=== PATIENT | female | born 1940 | race Hispanic/Latino ===

== ENCOUNTER → 2018-09-17 | Outpatient (CLI) | payer OTHER ==
[~2018-09-17] MED LIST: AMLO5TAB9 PO; ASPI-1197 PO; FLUT16H NASAL; LACT1CAP72 PO; LEVO500T2 PO; LEVO50TA11 PO; MELA1TAB17 PO; METO-391 PO; OMEP20CA10 PO; PROP1DRO OU
== END | disposition home or self-care (01) ==
LOC: RAH 08:26
PROVIDERS: ATTEND Internal Medicine Gastroenterology
DX: K76.0 Fatty (change of) liver, not elsewhere classified (principal); Z90.49 Acquired absence of other specified parts of digestive tract
CPT/HCPCS: 76700

== ENCOUNTER → 2020-05-23 | Outpatient (CLI) | payer OTHER ==
[~2020-05-23] MED LIST changes: +AMLO-257 PO; -AMLO5TAB9 PO; -OMEP20CA10 PO; +OMEP20CA12 PO
== END | disposition home or self-care (01) ==
LOC: SHCH 13:35
PROVIDERS: ATTEND Internal Medicine Cardiovascular Disease
DX: I87.2 Venous insufficiency (chronic) (peripheral) (principal)
CPT/HCPCS: 93970

== ENCOUNTER → 2020-06-08 | Outpatient (CLI) | payer OTHER | END | disposition home or self-care (01) | LOC: RAH 13:21 | PROVIDERS: ATTEND Internal Medicine Cardiovascular Disease | DX: T82.110A Breakdown (mechanical) of cardiac electrode, initial encounter (principal); I70.0 Atherosclerosis of aorta | CPT/HCPCS: 71046 ==

== ENCOUNTER → 2020-07-24 | Outpatient (CLI) | payer OTHER | END | disposition home or self-care (01) | LOC: SHCH 14:37 | PROVIDERS: ATTEND Internal Medicine Cardiovascular Disease | DX: I87.2 Venous insufficiency (chronic) (peripheral) (principal); Z09 Encounter for follow-up examination after completed treatment for conditions other than malignant neoplasm | CPT/HCPCS: 93971 ==

== ENCOUNTER 2020-08-17 06:07 | Day surgery (SDC) | payer OTHER ==
[2020-08-15 10:22] LABS: BASOPHILS % (AUTO) 0.1 % (0.0-5.0); EOSINOPHILS % (AUTO) 1.9 % (0.0-8.0); HEMATOCRIT 38.2 % (36-48); LYMPHOCYTES % (AUTO) 33.3 % (21.0-51.0); MEAN CORPUSCULAR HGB CONC 32.7 g/dL (32.0-36.0); MEAN CORPUSCULAR VOLUME 91.6 fL (79-99); MONOCYTES % (AUTO) 6.7 % (3.0-13.0); NEUTROPHILS % (AUTO) 57.7 % (40.0-77.0); PLATELET COUNT (AUTO) 256 K/uL (130-400); RED BLOOD CELL COUNT(AUTO) 4.17 MIL/uL (4.00-5.50); RED CELL DISTRIBUTION WIDTH 13.5 % (11.0-15.5); WHITE BLOOD COUNT (AUTO) 7.3 K/uL (4.8-10.8)
[2020-08-15 10:31] LABS: CREATININE 0.7 mg/dL (0.5-1.5); POTASSIUM 4.6 mmol/L (3.5-5.1)
[2020-08-15 10:33] LABS: INR 0.99 (0.85-1.15); PROTHROMBIN TIME 10.8 SEC (9.6-11.6)
[2020-08-15 10:34] LABS: PARTIAL THROMBOPLASTIN TIME 24.8 SEC (26.3-35.5)
[2020-08-16 10:34] VITALS: BP 154/73
[2020-08-17] VITALS (10 sets, daily range): BP systolic 117–163; BP diastolic 53–66
[~2020-08-17] VITALS: Ht 149.9 cm; Wt 83.6 kg
[~2020-08-17 06:07] MED LIST changes: +CEFAZOLIN SODIUM 1 GM VIAL IVP SCH; -FLUT16H NASAL; -LACT1CAP72 PO; -LEVO500T2 PO; -MELA1TAB17 PO; +METF-444 PO; +MULT-1367 PO; -PROP1DRO OU; +TURMERIC PO; +biotin PO; +metamucil PO
[2020-08-17] MEDS ORDERED: 0.9%NACL 1000ML 1,000 ML IV ONE (06:45)
[2020-08-17] MEDS ORDERED: CEFAZOLIN SODIUM 1 GM VIAL ONE (07:04)
[2020-08-17] MEDS ORDERED: MEPERIDINE-PF 25 MG/ML SYG ONE ×3 (07:05→09:01)
[2020-08-17] MEDS ORDERED: MIDAZOLAM HCL 1 MG/ML 2ML VIAL ONE ×3 (07:05→09:01)
[2020-08-17] MEDS ORDERED: BUPIVACAINE/PF 0.25% 30ML VIAL IJ ONE (07:06)
[2020-08-17] MEDS ORDERED: LIDOCAINE HCL 1% MDV 50ML VIAL ONE (07:06)
[2020-08-17] MEDS ORDERED: IOHEXOL-350 50ML VIAL IV ONE (08:12)
[2020-08-17] MEDS ORDERED: TRAM50TA4 PO (10:14)
[2020-08-17] MEDS ORDERED: ACETAMINOPHEN WITH CODEINE 1 TAB TAB PO PRN ×2 (10:15→12:45)
[2020-11-20] MEDS ORDERED: LEVO50CA4 PO (13:02)
[2020-11-20] MEDS ORDERED: RAMI5CAP66 PO (13:02)
[2020-11-20] MEDS ORDERED: METF-444 PO (13:02)
[2020-11-20] MEDS ORDERED: METO-391 PO (13:02)
[2020-11-20] MEDS ORDERED: BIOT5000 PO (13:02)
[2020-11-20] MEDS ORDERED: OMEP-420 PO (13:02)
== END 2020-08-17 14:34 | disposition home or self-care (01) ==
LOC: DAH 06:07
PROVIDERS: ATTEND Internal Medicine Cardiovascular Disease
DX: T82.110A Breakdown (mechanical) of cardiac electrode, initial encounter (principal); I44.1 Atrioventricular block, second degree; I49.5 Sick sinus syndrome; I10 Essential (primary) hypertension; E78.5 Hyperlipidemia, unspecified; E11.9 Type 2 diabetes mellitus without complications; E03.9 Hypothyroidism, unspecified; I25.10 Atherosclerotic heart disease of native coronary artery without angina pectoris; Z79.01 Long term (current) use of anticoagulants; Z79.82 Long term (current) use of aspirin; Z79.890 Hormone replacement therapy; Z79.899 Other long term (current) drug therapy; Z98.890 Other specified postprocedural states; Z90.710 Acquired absence of both cervix and uterus; Y83.8 Other surgical procedures as the cause of abnormal reaction of the patient, or of later complication, without mention of misadventure at the time of the procedure
CPT/HCPCS: 33217; 36415; 71045; 80048; 82948 ×2; 85025; 85610; 85730; 93005; A4215; A4216; A4221; A4222; A4223 ×3; A4606; A4663; C1898 ×2; J0690; J2175 ×3; J2250 ×3; J3490 ×2; J7030; Q9967; 99156; 99157

== ENCOUNTER → 2020-09-18 | Outpatient (CLI) | payer OTHER ==
[~2020-09-18] MED LIST changes: -CEFAZOLIN SODIUM 1 GM VIAL IVP SCH; +TRAM50TA4 PO
== END | disposition home or self-care (01) ==
LOC: SHCH 08:50
PROVIDERS: ATTEND Internal Medicine Cardiovascular Disease
DX: I87.2 Venous insufficiency (chronic) (peripheral) (principal); Z09 Encounter for follow-up examination after completed treatment for conditions other than malignant neoplasm
CPT/HCPCS: 93971

== ENCOUNTER 2020-11-21 06:04 | Day surgery (SDC) | payer OTHER ==
[~2020-11-21] VITALS: Ht 149.9 cm; Wt 81.6 kg
[2020-11-21] VITALS (8 sets, daily range): BP systolic 98–126; BP diastolic 45–66
[~2020-11-21 06:04] MED LIST changes: -AMLO-257 PO; -ASPI-1197 PO; +BIOT5000 PO; +LEVO50CA4 PO; -LEVO50TA11 PO; -MULT-1367 PO; +OMEP-420 PO; -OMEP20CA12 PO; +RAMI5CAP66 PO; -TRAM50TA4 PO; -TURMERIC PO; -biotin PO; -metamucil PO
[2020-11-21] MEDS ORDERED: 0.9%NACL 1000ML 1,000 ML IV ONE (06:25)
[2020-11-21] MEDS ORDERED: LIDOCAINE HCL 1% 20 ML VIAL ONE (07:14)
[2020-11-21] MEDS ORDERED: PROPOFOL 10 MG/ML 20ML VIAL IV ONE (07:14)
[2020-11-21] MEDS ORDERED: 0.9%NACL 10ML VIAL ONE (07:47)
[2020-11-21] MEDS ORDERED: PHENYLEPHRINE HCL 10 MG/ML 1ML VIAL IV ONE (07:47)
== END 2020-11-21 08:30 | disposition home or self-care (01) ==
LOC: ENDO 06:04 → DAH 06:04 → ENDO 08:30
PROVIDERS: ATTEND Internal Medicine Gastroenterology
DX: R14.0 Abdominal distension (gaseous) (principal); Z20.822 Contact with and (suspected) exposure to COVID-19; K21.9 Gastro-esophageal reflux disease without esophagitis; K44.9 Diaphragmatic hernia without obstruction or gangrene; K31.7 Polyp of stomach and duodenum; K29.50 Unspecified chronic gastritis without bleeding; I10 Essential (primary) hypertension; I25.10 Atherosclerotic heart disease of native coronary artery without angina pectoris; K76.89 Other specified diseases of liver; K76.0 Fatty (change of) liver, not elsewhere classified; E03.9 Hypothyroidism, unspecified; Z79.899 Other long term (current) drug therapy; Z86.010 Personal history of colon polyps; Z90.49 Acquired absence of other specified parts of digestive tract; Z90.710 Acquired absence of both cervix and uterus; Z98.890 Other specified postprocedural states; Z79.84 Long term (current) use of oral hypoglycemic drugs; Z79.82 Long term (current) use of aspirin; Z95.0 Presence of cardiac pacemaker; Z95.5 Presence of coronary angioplasty implant and graft
CPT/HCPCS: 43239; 43251; 45378; 82948; 87635; 93005; A4215; A4221; A4222; A4223; A4606; A4620; A4657 ×2; A4663; C9803; J2370; J2704; J7030

== ENCOUNTER 2020-11-21 06:04 | Day surgery (SDC) | payer OTHER | END 2020-11-21 08:30 | disposition home or self-care (01) | LOC: ENDO 06:04 → DAH 06:04 → ENDO 08:30 | PROVIDERS: ATTEND Internal Medicine Gastroenterology | DX: Z12.11 Encounter for screening for malignant neoplasm of colon (principal); K30 Functional dyspepsia; K44.9 Diaphragmatic hernia without obstruction or gangrene; K31.7 Polyp of stomach and duodenum; K62.5 Hemorrhage of anus and rectum | CPT/HCPCS: 93005 ==